=== PATIENT | female | born 1985 | race Caucasian/White ===

== ENCOUNTER 2021-04-13 10:20 | Emergency (ER) | payer OTHER ==
[~2021-04-13] VITALS: Ht 162.6 cm; Wt 99.8 kg
[2021-04-13 10:46] VITALS: BP 148/88
[2021-04-13 10:50] VITALS: BP 142/88
--- NOTE | 2021-04-13 11:08 | ER.PDOC ---
General Chief Complaint: Sore Throat Stated Complaint: SORE THROAT Time seen by MD: 10:45 Source: patient Exam Limitations: no limitations History of Present Illness Initial Comments This 35-year-old white female comes in with complaint of a sore throat is been present for the past 4 days. She denies any other associated symptoms with this. No nasal congestion. No cough. No fevers or chills. No nausea vomiting diarrhea. The only symptom she has is a sore throat that just has not gone away. She also has not taken anything for it. Timing/Duration: gradual Associated Symptoms: mod sore throat Severity: moderate Worsen By: nothing Prior symptoms/Treatment: Similar symptoms previous Past Medical History Medical History: no pertinent history Surgical History: cholecystectomy Social History Smoking: non-smoker Alcohol Use: none Drug Use: none Throat: see HPI All Other Systems: Reviewed and Negative Physical Exam General Appearance: alert, no distress Eyes: eyes nml inspection, PERRL, no nystagmus Mouth: lips, gums nml, no drooling, no thrush, membranes nml Throat: pharynx nml, voice nml, no airway problems Ears/Nose: nml inspection Respiratory: no resp. distress, lungs clear CVS: reg. rate & rhythm, heart sounds nml Abdomen: non-tender, no organomegaly Extremities: non-tender, ROM nml Skin Exam: Normal Color, Warm/Dry Results/Orders Results/Orders Orders - ROBERTO COPELAND MD Strep Screen (04/13/21 11:04) Vital Signs Date Time Temp Pulse Resp B/P (MAP) Pulse Ox O2 Delivery O2 Flow Rate FiO2 04/13/21 10:50 98.4 82 16 142/88 (106) 99 Room Air 04/13/21 10:46 98.4 82 16 99 04/13/21 10:46 98.4 82 16 Laboratory Tests Test 04/13/21 11:04 Group A Streptococcus Screen NEGATIVE (NEGATIVE) Progress Progress Strep screen is negative ER DEPART Departure Time of Disposition: 11:25 Disposition: 01 HOME / SELF CARE / HOMELESS Impression: Primary Impression: Viral pharyngitis Condition: Improved Referrals: PCP,UNKNOWN (PCP) PRIMARY CARE PROVIDER Duration or Time Spent with Pa: 15m ROBERTO COPELAND MD Apr 13, 2021 11:08
[2021-04-13 11:35] VITALS: BP 136/85
== END 2021-04-13 11:35 | disposition home or self-care (01) ==
LOC: ER 10:20
DX: J02.8 Acute pharyngitis due to other specified organisms (principal); B97.89 Other viral agents as the cause of diseases classified elsewhere; Z90.49 Acquired absence of other specified parts of digestive tract
CPT/HCPCS: 87070; 87077; 87186; 87880; 99283